=== PATIENT | male | born 1945 | race Caucasian/White ===

== ENCOUNTER 2020-06-15 10:19 | Outpatient (CLI) | payer MEDICARE, SELFPAY ==
--- NOTE | ~2020-06-15 | XR_ITS ---
EXAMINATION: XR lumbar spine 2-3V DATE: 06/15/2020 10:36 INDICATION: Low back pain. TECHNIQUE: 3 views of lumbar spine were obtained. COMPARISON: CT abdomen and pelvis 07/18 FINDINGS: There is 4 degrees dextrocurvature of thoracolumbar spine. Vertebral body heights are ramsey l. There is moderately decreased disc height at L1-L2 and mildly decreased disc height at L3-L4 and L 4-L5. There are endplate osteophytes at most levels. There is moderate facet joint osteoarthritis in lower lumbar spine. Surgical clips in the right upper quadrant are likely from cholecystectomy. There is a dropped clip in the pelvis. IMPRESSION: 1. Moderate lumbar spondylosis. Reviewed, dictated and finalized at location B. K ROOM MANAGER
== END 2020-06-15 10:20 | disposition home or self-care (01) ==
PROVIDERS: PCP Family Medicine; Visit Provider Physician Assistant
DX: M47.896 Other spondylosis, lumbar region (principal)
CPT/HCPCS: 72100

== ENCOUNTER 2023-09-13 12:54 | Outpatient (CLI) | payer MEDICARE, SELFPAY | END 2023-09-13 12:55 | disposition home or self-care (01) | LOC: ANHAUDIO 12:54 | PROVIDERS: PCP Family Medicine; Visit Provider Otolaryngology | DX: H90.3 Sensorineural hearing loss, bilateral (principal); H93.19 Tinnitus, unspecified ear; I12.9 Hypertensive chronic kidney disease with stage 1 through stage 4 chronic kidney disease, or unspecified chronic kidney disease; N18.31 Chronic kidney disease, stage 3a | CPT/HCPCS: 92557; 92567 ==

== ENCOUNTER 2023-10-31 12:30 | Outpatient (CLI) | payer MEDICARE, SELFPAY ==
--- NOTE | ~2023-10-31 | MR_ITS ---
EXAMINATION: MR IAC wo/w con DATE: 10/31/2023 13:46 INDICATION: Benign neoplasm of cranial nerves. Left-sided hearing loss. Tinnitus. TECHNIQUE: Magnetic resonance imaging (MRI) of the brain, brainstem, and internal auditory canals was performed without and with 14 mL MultiHance intravenous contrast. COMPARISON: Head CT 03/30/2017 FINDINGS: There are scattered areas of nonspecific increased T2-weighted signal intensity in the cere bral white matter. There is no intracranial hemorrhage, acute infarction, or abnormal intracranial ma ss lesion. The ventricles are normal in size. There is mild mucosal thickening in the ethmoid sinuses . There are likely changes of ocular lens replacement surgeries. The internal auditory canals, inner ears, tympanic cavities, and mastoid air cells are normal. IMPRESSION: 1. Moderate nonspecific cerebral white matter disease, which likely represents chronic small vessel i schemic disease. Reviewed, dictated and finalized at location A. IMPRESSION: 1. Moderate nonspecific cerebral white matter disease, which likely represents chronic small vessel ischemic disease.
== END 2023-10-31 12:31 ==
LOC: GOSHIMG 12:31
PROVIDERS: PCP Family Medicine; Visit Provider Otolaryngology
DX: D33.3 Benign neoplasm of cranial nerves (principal); H90.3 Sensorineural hearing loss, bilateral; H93.19 Tinnitus, unspecified ear; R90.82 White matter disease, unspecified
CPT/HCPCS: 70553; A9577

== ENCOUNTER 2023-12-23 16:48 | Outpatient (CLI) | payer MEDICARE, SELFPAY ==
--- NOTE | ~2023-12-23 | XR_ITS ---
EXAMINATION: XR hip RT min 2V DATE: 12/23/2023 17:15 INDICATION: Right hip pain TECHNIQUE: Anteroposterior and frog-leg lateral views of the right hip were obtained. COMPARISON: None. FINDINGS: Bone alignment is normal. No fracture or suspected osteonecrosis. Right hip joint space is relatively preserved with small marginal osteophytes along the right acetabulum. Mild bilateral sacroiliac oste oarthritis. Bone island at the right femoral head. Surgical clip in the pelvis. IMPRESSION: 1. 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 No acute osseous abnormality. Reviewed, dictated and finalized at location A.
--- NOTE | ~2023-12-23 | XR_ITS ---
EXAMINATION: XR lumbar spine min 4V DATE: 12/23/2023 17:15 INDICATION: Right hip pain TECHNIQUE: Anteroposterior, lateral, and bilateral oblique views of the lumbar spine, and cone-down l ateral view of the lumbosacral junction were obtained. COMPARISON: 06/15/2020 FINDINGS: A degree thoracolumbar dextrocurvature. Sagittal alignment is normal. Vertebral body heights are norm al. Moderate disc height loss at L1-L2 and L4-L5. Mild disc height loss at L2-L3, L3-L4 and L5-S1. Mi ld to moderate lumbar facet osteoarthritis most prominent at the left side of the upper lumbar spine and bilaterally at the lower lumbar spine. No pars interarticularis defects. Mild osteoarthritis of t he bilateral sacroiliac joints. Cholecystectomy clips in the right upper quadrant with likely dropped clips in the pelvis along the lateral margin of the caudal tip of the liver. IMPRESSION: 1. Interval progression of now 8 degree thoracolumbar dextrocurvature and still moderate lumbar spond ylosis. Reviewed, dictated and finalized at location A. IMPRESSION: 1. Interval progression of now 8 degree thoracolumbar dextrocurvature and still moderate lumbar spondylosis.
== END 2023-12-23 16:49 | disposition home or self-care (01) ==
LOC: ANHIMG 16:49
PROVIDERS: PCP Family Medicine; Visit Provider Nurse Practitioner Family
DX: M16.11 Unilateral primary osteoarthritis, right hip (principal); M46.1 Sacroiliitis, not elsewhere classified; M43.06 Spondylolysis, lumbar region; M43.8X5 Other specified deforming dorsopathies, thoracolumbar region
CPT/HCPCS: 72110; 73502

== ENCOUNTER 2024-01-05 09:31 | Outpatient (CLI) | payer MEDICARE, SELFPAY ==
--- NOTE | ~2024-01-05 | MR_ITS ---
EXAMINATION: MR lumbar spine wo con DATE: 01/05/2024 10:22 INDICATION: Low back pain, unspecified. TECHNIQUE: Magnetic resonance imaging (MRI) of the lumbar spine was performed without intravenous con trast. Sequences included sagittal T2-weighted FSE, sagittal T2-weighted FS FSE, sagittal T1-weighted FSE, and axial T2-weighted FSE. COMPARISON: Lumbar spine radiographs 12/23/2023 FINDINGS: There is 8 degrees dextrocurvature of lumbar spine. There is mild chronic anterior wedging of T12 vertebral body. There is moderately decreased disc height at L1-L2, mildly decreased disc heig ht at L2-L3 and L3-L4, and moderately decreased disc height at L4-L5. The distal spinal cord signal i ntensity is normal. The conus medullaris is at T12. The following disc levels are specifically discus sed: L1-L2: The disc is bulging. There is mild bilateral facet joint osteoarthritis. There is mild bilater al neural foraminal stenosis. There is mild central canal stenosis. L2-L3: The disc is bulging. There is moderate bilateral facet joint osteoarthritis. There is mild jake ateral neural foraminal stenosis. There is mild central canal stenosis. L3-L4: The disc is bulging and has an annular fissure. There is moderate bilateral facet joint osteoa rthritis. There is mild bilateral neural foraminal stenosis. There is mild central canal stenosis. L4-L5: The disc is bulging and has an annular fissure. There is severe right and moderate left facet joint osteoarthritis. There is moderate bilateral neural foraminal stenosis. There is mild central ca nal stenosis. L5-S1: There is a left foraminal protrusion. There is severe bilateral facet joint osteoarthritis. Th ere is mild bilateral neural foraminal stenosis. There is no central canal stenosis. IMPRESSION: 1. Moderate lumbar spondylosis. Reviewed, dictated and finalized at location E.
== END 2024-01-05 09:32 | disposition home or self-care (01) ==
PROVIDERS: PCP Family Medicine; Visit Provider Nurse Practitioner Family
DX: M46.96 Unspecified inflammatory spondylopathy, lumbar region (principal); M47.818 Spondylosis without myelopathy or radiculopathy, sacral and sacrococcygeal region; M54.9 Dorsalgia, unspecified; M54.50 Low back pain, unspecified; M25.551 Pain in right hip; M43.06 Spondylolysis, lumbar region
CPT/HCPCS: 72148

== ENCOUNTER 2024-01-15 08:06 | Outpatient (CLI) | payer MEDICARE, SELFPAY ==
--- NOTE | ~2024-01-15 | MR_ITS ---
MRI of the right hip Clinical history: Pain Technique: Coronal T1-weighted, T2-weighted, and proton-density fat-sat images, and axial T1-weighted and proton-density fat-sat images were acquired through the pelvis. Coronal T2-weighted images and c oronal, axial, and sagittal proton-density fat-sat images were acquired through the right hip. Findings: There is no fracture or avascular necrosis of either hip. Bone marrow signals of the proxim al femora and pelvic bones are unremarkable. Bilateral hip joint spaces are preserved, possible minim al chondral thinning. No significant joint effusion or degenerative change otherwise. No evidence for right acetabular labral tear. Visualized musculature about the pelvis and right hip is unremarkable. No muscle atrophy or edema see n. Visualized tendons are intact. No soft tissue mass or fluid collection seen. No bursitis. IMPRESSION: No significant abnormality seen. Reviewed, dictated and finalized at [facility].
== END 2024-01-15 08:07 ==
LOC: GOSHIMG 08:07
PROVIDERS: PCP Family Medicine; Visit Provider Nurse Practitioner Family
DX: M54.50 Low back pain, unspecified (principal); M25.551 Pain in right hip; M46.96 Unspecified inflammatory spondylopathy, lumbar region; M47.818 Spondylosis without myelopathy or radiculopathy, sacral and sacrococcygeal region; M54.9 Dorsalgia, unspecified
CPT/HCPCS: 73721

== ENCOUNTER 2024-10-02 10:14 | Outpatient (CLI) | payer MEDICARE, SELFPAY | END 2024-10-02 10:15 | disposition home or self-care (01) | PROVIDERS: PCP Family Medicine; Visit Provider Nurse Practitioner Family | DX: R55 Syncope and collapse (principal); R07.89 Other chest pain | CPT/HCPCS: 93017 ==

== ENCOUNTER 2024-10-14 16:16 | Emergency (ER) | payer MEDICARE, SELFPAY ==
--- NOTE | 2024-10-14 16:43 | ECG_ITS ---
Test Date: 2024-10-14 16:46:51 Measurements Intervals [place] Rate: 88 P: 35 MO: 197 QRS: 16 QRSD: 75 T: 35 QT: 307 QTc: 373 Interpretive Statements SINUS RHYTHM NONSPECIFIC T-WAVE ABNORMALITY No previous ECG available for comparison Electronically Signed On 10-15-2024 13:56:58 CDT by Ilir Mcmillan M.D.
--- NOTE | 2024-10-14 17:54 | ED_ITS ---
HPI - General Adult General Chief complaint: Weakness <FABIOLA Wilcox Last Filed: 10/14/24 18:14> Stated complaint: diarrhea, weak <FABIOLA Wilcox Last Filed: 10/14/24 18:14> Time Seen by Provider: 10/14/24 18:03 <Chantal Pulido PA-C - Last Filed: 10/14/24 18:14> Focused HPI: Patient is a 79 y/o male who presents to the ED with c/o diarrhea and weakness. Patient reports he has been feeling very weak and fatigued over the last 2-3 days. He had diarrhea all day yesterday, reporting multiple episodes throughout the day. Today has felt increasingly weak, been sleeping most of the day. Called PCP and was referred to the ED for further evaluation. Denies N/V, abdominal, CP, SOB, fevers, trouble urinating. Denies bad food exposure. Denies family members with similar symptoms. Reports lingering cough for the past 3 months. Notes he had a syncopal episode end of September and underwent stress testing recently, which was normal. Scheduled to see photolith operator at the end of this month. GENERAL: Well-appearing, well-nourished, and in no acute distress. HEAD: Normocephalic, atraumatic. CHEST: Clear to auscultation. ?No respiratory distress. HEART: Regular rate and rhythm.? ABD: No significant focal tenderness. Normoactive BS NEURO: ?Alert and oriented x3. Patient screened in triage and initial orders placed.? ?Additional care and disposition to be based upon?diagnostic testing and treatment. <FABIOLA Wilcox Last Filed: 10/14/24 18:14> Source: patient <FABIOLA Wilcox Last Filed: 10/14/24 18:14> Mode of arrival: ambulatory <FABIOLA Wilcox Last Filed: 10/14/24 18:14> Limitations: no limitations <FABIOLA Wilcox Last Filed: 10/14/24 18:14> Related Data Home medications: Home Medications ?Medication ?Instructions ?Recorded ?Confirmed ?Last Taken ?Type mecobalamin (vitamin B12) 500 mcg mcg PO DAILY 11/22/23 09/23/24 Unknown History chewable tablet juzmqnja-oa-sftls 300 mcg-K 60 1 tablet PO DAILY 11/22/23 09/23/24 Unknown History mcg-lycop 600 mcg-lutein 300 mcg tablet (Centrum Silver Men) <Chantal Pulido PA-C - Last Filed: 10/14/24 18:14> Allergies/adverse reactions: Allergies Allergy/AdvReac Type Severity Reaction Status Date / Time morphine Allergy Unknown Urticaria Verified 10/14/24 16:42 <Chantal Pulido PA-C - Last Filed: 10/14/24 18:14> Review of Systems 2 Review of Systems: All systems are reviewed and are negative unless stated otherwise in the HPI. <Tyler Colvin MD - Last Filed: 10/14/24 20:32> PMFSH Past Medical History Medical History: Medical History Lumbar spondylosis Essential (primary) hypertension Chronic kidney disease, stage 3a Hypertriglyceridemia Type 2 diabetes mellitus without complications BPH (benign prostatic hyperplasia) Other age-related incipient cataract, right eye Overweight Gastro-esophageal reflux disease without esophagitis Idiopathic gout, unspecified site <Chantal Pulido PA-C - Last Filed: 10/14/24 18:14> Surgical History Surgical History: Surgical History History of cholecystectomy (~07/2006) <Chantal Pulido PA-C - Last Filed: 10/14/24 18:14> Family History Family History: Family History Mother Family history of arthritis Family history of Alzheimer's disease Father Family history of cardiovascular disease Acute myocardial infarction, Onset Age: 43 Other Hypertension <Chantal Pulido PA-C - Last Filed: 10/14/24 18:14> Social History Social History: Social History Smoking status: Never smoker Alcohol intake: current Substance use: never Substance use type: does not use Lack of Transportation: No Lack of Food: Never True Current Housing: I Have Housing Concerned About Future Housing: No Difficulty Paying Gas/Electric Bills: No Difficulty Paying for Meds: No Currently Unemployed: No Education: High School Diploma/GED Difficulty w/ Childcare or Family Care: No Living arrangements: with family Additional living arrangements comments: Occupation/Education: retired Gender identity (if verbalized by the patient): Male Sexual Orientation (if Verbalized by the Patient): Straight or Heterosexual Agree to blood products: Yes <Chantal Pulido PA-C - Last Filed: 10/14/24 18:14> Exam 2 Narrative: General: Alert, awake, afebrile, in no acute distress, pleasant elderly male. HEENT: PERRL, no rhinorrhea, no post nasal drip, oropharynx clear. Neck: Trachea midline, no JVD, no lymphadenopathy. Cardiovascular: Regular rate and rhythm, no murmurs, rubs or gallops, no peripheral edema. Respiratory: Clear to auscultation bilaterally, no tachypnea, no wheezing, no rhonchi, no rubs, no respiratory distress. Abdomen: Soft, nontender, nondistended, no rebound, no guarding, no peritoneal signs. Musculoskeletal: No joint swelling or deformity, normal muscle tone. Skin: No rashes or petechia, no signs of infection. Psychiatric: Alert and oriented, normal behavior and judgment for situation. Neurological: Alert and oriented to person, place, and time. Follows all commands. No focal deficits, speech is clear and fluent. <Tyler Colvin MD - Last Filed: 10/14/24 20:32> Course Vital Signs Vital signs: Vital Signs Pulse Rate 79 10/14/24 19:05 Pulse Rate 81 10/14/24 19:27 Respiratory Rate 16 10/14/24 19:27 Blood Pressure 119/63 10/14/24 19:27 Pulse Oximetry 98 10/14/24 19:27 <Chantal Pulido PA-C - Last Filed: 10/14/24 18:14> Vital Signs Pulse Rate 79 10/14/24 19:05 Pulse Rate 81 10/14/24 19:27 Respiratory Rate 16 10/14/24 19:27 Blood Pressure 119/63 10/14/24 19:27 Pulse Oximetry 98 10/14/24 19:27 <Tyler Colvin MD - Last Filed: 10/14/24 20:32> Medical Decision Making MDM Narrative Medical decision making narrative: MSE by ERIC in triage. <Chantal Pulido PA-C - Last Filed: 10/14/24 18:14> MSE by ERIC in triage. The patient was evaluated by myself in the emergency department. History is obtained from patient who is an independent historian and physical exam was performed. External medical records were reviewed at this time. IV was established and pertinent tests were ordered. Patient was administered 1 L IV fluid bolus with normal saline. EKG was obtained which revealed sinus rhythm rate of 88 beats per minute, no evidence of acute ischemia. EKG was independently interpreted by me and is currently pending official cardiology read. Laboratory results obtained revealing a creatinine of 1.7 which is slightly higher than patient's baseline creatinine which ranges around 1.5, otherwise remainder of the blood work is unremarkable. Urinalysis revealed trace ketones otherwise unremarkable. Viral swabs noted to be negative for COVID/influenza/RSV. Differential diagnosis considerations include acute viral syndrome, dehydration, electrolyte derangements. Comorbidities impacting this visit include none. I have evaluated and discussed social determinants of health with the patient that could potentially impact subsequent diagnosis and treatment plans. On repeat assessment of the patient, reevaluation revealed that the patient is doing well and is in no acute distress. Patient symptoms have improved since he arrived to our emergency department. Repeat vital signs were all reviewed and noted to be stable. Differential diagnosis and treatment plan were discussed with the patient at bedside. Patient agrees with discussion and after shared medical decision making agrees with discharge. All questions were answered to the patient's satisfaction. Patient will follow up with her PCP in 3-5 days. Patient was provided with strict return precautions and instructed to return to the emergency department if any new or worsening symptoms develop. The patient was discharged in stable condition. <Tyler Colvin MD - Last Filed: 10/14/24 20:32> Vital Signs Vital Signs: Vital Signs Pulse Rate 79 10/14/24 19:05 Pulse Rate 81 10/14/24 19:27 Respiratory Rate 16 10/14/24 19:27 Blood Pressure 119/63 10/14/24 19:27 Pulse Oximetry 98 10/14/24 19:27 <Chantal Pulido PA-C - Last Filed: 10/14/24 18:14> Vital Signs Pulse Rate 79 10/14/24 19:05 Pulse Rate 81 10/14/24 19:27 Respiratory Rate 16 10/14/24 19:27 Blood Pressure 119/63 10/14/24 19:27 Pulse Oximetry 98 10/14/24 19:27 <Tyler Colvin MD - Last Filed: 10/14/24 20:32> Lab Data Result diagrams: 10/14/24 19:07 10/14/24 19:07 <Chantal Pulido PA-C - Last Filed: 10/14/24 18:14> Labs: Lab Results 10/14/24 Range/Units 19:07 WBC 10.2 H (4.5-10.0) K/mm3 RBC 5.02 (4.6-6.20) M/mm3 Hgb 15.3 (14.0-18.0) g/dL Hct 45.4 (42.0-52.0) % MCV 90.4 (80-100) fl MCH 30.5 (26-34) pg MCHC 33.7 (32-36) g/dl RDW 13.2 (11.5-14.5) % Plt Count 225 (150-375) k/mm3 MPV 9.9 (7.4-10.4) fl Immature Gran % (Auto) 0.5 (0-0.5) % Neut % (Auto) 53.9 (45.5-73.1) % Lymph % (Auto) 34.6 (18.3-44.2) % [place] % (Auto) 8.8 H (2.6-8.5) % Eos % (Auto) 1.9 (0-4.4) % Baso % (Auto) 0.3 (0.2-1.2) % Lymph # (Auto) 3.52 H (0.9-3.2) K/mm3 [place] # (Auto) 0.9 H (0.1-0.6) K/mm3 Eos # (Auto) 0.2 (0-0.3) K/mm3 Baso # (Auto) 0.0 (0.0-0.1) K/mm3 Abs Immat Gran (auto) 0.05 H (0.00-0.031) K/mm3 Absolute Neuts (auto) 5.5 (1.3-6.7) K/mm3 Absolute Nucleated RBC 0.000 (0.0-0.012) K/mm3 Nucleated RBC % 0.0 (0.0-0.2) % Sodium 140 (137-145) mmol/L Potassium 4.4 (3.4-5.0) mmol/L Chloride 100 (98-107) mmol/L Carbon Dioxide 26 (22-30) mmol/L Anion Gap 14 H (4-12) mmol/L BUN 29 H (9-20) mg/dL Creatinine 1.71 H (0.7-1.3) mg/dL Estim Creat Clear Calc Not Reportable Estimated GFR 39 L (59 - ) Glucose 118 H (65-110) mg/dL Calcium 9.7 (8.4-10.2) mg/dL Magnesium 1.8 (1.6-2.3) mg/dL Total Bilirubin 0.9 (0.2-1.3) mg/dL AST 33 (17-59) U/L ALT 50 (6-50) U/L Alkaline Phosphatase 93 (38-126) U/L Total Protein 9.0 H (6.3-8.2) g/dL Albumin 5.0 (3.5-5.1) g/dL Lipase 31 (23-300) U/L Urine Color Yellow (Yellow) Urine Appearance Clear (Clear) Urine pH 5.0 (5.0-9.0) Ur Specific [place] 1.023 (1.001-1.035) Urine Protein Negative (Negative) mg/dL Urine Glucose (UA) Negative (Negative) mg/dL Urine Ketones Trace H (Negative) mg/dL Ur Blood (Man) Negative (Negative) Urine Nitrate Negative (Negative) Urine Bilirubin Negative (Negative) Urine Urobilinogen 0.2 (<2.0) mg/dL Leukocyte Esterase Rfl Negative (Negative) RITESH/UL Influenza A (RT-PCR) Negative (Negative) Influenza B (RT-PCR) Negative (Negative) RSV (RT-PCR) Negative (Negative) SARS-CoV-2 RNA (RT-PCR) Negative (Negative) <Chantal Pulido PA-C - Last Filed: 10/14/24 18:14> Lab Results 10/14/24 Range/Units 19:07 WBC 10.2 H (4.5-10.0) K/mm3 RBC 5.02 (4.6-6.20) M/mm3 Hgb 15.3 (14.0-18.0) g/dL Hct 45.4 (42.0-52.0) % MCV 90.4 (80-100) fl MCH 30.5 (26-34) pg MCHC 33.7 (32-36) g/dl RDW 13.2 (11.5-14.5) % Plt Count 225 (150-375) k/mm3 MPV 9.9 (7.4-10.4) fl Immature Gran % (Auto) 0.5 (0-0.5) % Neut % (Auto) 53.9 (45.5-73.1) % Lymph % (Auto) 34.6 (18.3-44.2) % [place] % (Auto) 8.8 H (2.6-8.5) % Eos % (Auto) 1.9 (0-4.4) % Baso % (Auto) 0.3 (0.2-1.2) % Lymph # (Auto) 3.52 H (0.9-3.2) K/mm3 [place] # (Auto) 0.9 H (0.1-0.6) K/mm3 Eos # (Auto) 0.2 (0-0.3) K/mm3 Baso # (Auto) 0.0 (0.0-0.1) K/mm3 Abs Immat Gran (auto) 0.05 H (0.00-0.031) K/mm3 Absolute Neuts (auto) 5.5 (1.3-6.7) K/mm3 Absolute Nucleated RBC 0.000 (0.0-0.012) K/mm3 Nucleated RBC % 0.0 (0.0-0.2) % Sodium 140 (137-145) mmol/L Potassium 4.4 (3.4-5.0) mmol/L Chloride 100 (98-107) mmol/L Carbon Dioxide 26 (22-30) mmol/L Anion Gap 14 H (4-12) mmol/L BUN 29 H (9-20) mg/dL Creatinine 1.71 H (0.7-1.3) mg/dL Estim Creat Clear Calc Not Reportable Estimated GFR 39 L (59 - ) Glucose 118 H (65-110) mg/dL Calcium 9.7 (8.4-10.2) mg/dL Magnesium 1.8 (1.6-2.3) mg/dL Total Bilirubin 0.9 (0.2-1.3) mg/dL AST 33 (17-59) U/L ALT 50 (6-50) U/L Alkaline Phosphatase 93 (38-126) U/L Total Protein 9.0 H (6.3-8.2) g/dL Albumin 5.0 (3.5-5.1) g/dL Lipase 31 (23-300) U/L Urine Color Yellow (Yellow) Urine Appearance Clear (Clear) Urine pH 5.0 (5.0-9.0) Ur Specific [place] 1.023 (1.001-1.035) Urine Protein Negative (Negative) mg/dL Urine Glucose (UA) Negative (Negative) mg/dL Urine Ketones Trace H (Negative) mg/dL Ur Blood (Man) Negative (Negative) Urine Nitrate Negative (Negative) Urine Bilirubin Negative (Negative) Urine Urobilinogen 0.2 (<2.0) mg/dL Leukocyte Esterase Rfl Negative (Negative) RITESH/UL Influenza A (RT-PCR) Negative (Negative) Influenza B (RT-PCR) Negative (Negative) RSV (RT-PCR) Negative (Negative) SARS-CoV-2 RNA (RT-PCR) Negative (Negative) <Tyler Colvin MD - Last Filed: 10/14/24 20:32> Discharge Plan Discharge Clinical Impression: Acute diarrhea, Dehydration <Chantal Pulido PA-C - Last Filed: 10/14/24 18:14> Patient Disposition: Home, Self-Care <Chantal Pulido PA-C - Last Filed: 10/14/24 18:14> Condition: Improved <Chantal Pulido PA-C - Last Filed: 10/14/24 18:14> Instructions: Antibiotic Form, Dehydration (DC), Acute Diarrhea (ED) <Chantal Pulido PA-C - Last Filed: 10/14/24 18:14> Additional Instructions: Please follow-up with your family doctor within the next 3-5 days. Return to the emergency department if any new or worsening symptoms develop. Maintain your oral hydration by drinking lots of fluids. <Chantal Pulido PA-C - Last Filed: 10/14/24 18:14> Patient Language: [place]an <Chantal Pulido PA-C - Last Filed: 10/14/24 18:14> Prescriptions: No Action Centrum Silver Men [id number] mcg tablet 1 tablet PO DAILY mecobalamin (vitamin B12) 500 mcg tablet,chewable PO DAILY lisinopril 10 mg tablet 10 mg PO DAILY Qty: 90 2RF omeprazole 20 mg capsule,delayed release(DR/EC) 20 mg PO DAILY PRN (Reason: gastric reflux) Qty: 90 1RF metformin 500 mg tablet extended release 24 hr 500 mg PO DAILY Qty: 90 1RF <Chantal Pulido PA-C - Last Filed: 10/14/24 18:14> Follow-up/Referrals: Cirilo Liu MD [Primary Care Provider] - <Chantal Pulido PA-C - Last Filed: 10/14/24 18:14> Time of Disposition: 19:52 <Chantal Pulido PA-C - Last Filed: 10/14/24 18:14> 19:52 <Tyler Colvin MD - Last Filed: 10/14/24 20:32>
[2024-10-14 19:05] VITALS: PULSE 79
[2024-10-14 19:18] LABS: Basophils Percent Auto 0.3 % (0.2-1.2); Eosinophils Absolute Auto 0.2 K/mm3 (0-0.3); Eosinophils Percent Auto 1.9 % (0-4.4); Hematocrit 45.4 % (42.0-52.0); Hemoglobin 15.3 g/dL (14.0-18.0); Immature Granulocyte Absolute 0.05 K/mm3 (0.00-0.031); Immature Granulocyte Percent A 0.5 % (0-0.5); Lymphocytes Absolute Auto 3.52 K/mm3 (0.9-3.2); Lymphocytes Percent Auto 34.6 % (18.3-44.2); Mean Corpuscular HGB Conc 33.7 g/dl (32-36); Mean Corpuscular Hemoglobin 30.5 pg (26-34); Mean Corpuscular Volume 90.4 fl (80-100); Mean Platelet Volume 9.9 fl (7.4-10.4); Monocytes Absolute Auto 0.9 K/mm3 (0.1-0.6); Monocytes Percent Auto 8.8 % (2.6-8.5); Neutrophils Absolute Auto 5.5 K/mm3 (1.3-6.7); Neutrophils Percent Auto 53.9 % (45.5-73.1); Platelet Count Result 225 k/mm3 (150-375); Red Blood Count 5.02 M/mm3 (4.6-6.20); Red Cell Distribution Width 13.2 % (11.5-14.5); White Blood Count 10.2 K/mm3 (4.5-10.0)
[2024-10-14 19:19] LABS: Add Urine Microscopic? NO; Appearance Urine Clear (Clear); Bilirubin Urine Negative (Negative); Blood Urine Negative (Negative); Color Urine Yellow (Yellow); Glucose Urine UA Negative (Negative); Ketones Urine Trace mg/dL (Negative); Leukocyte Esterase Ur Negative LEU/UL (Negative); Nitrate Urine Negative (Negative); Protein Urine Negative (Negative); Specific Grav Ur 1.023 (1.001-1.035); Urobilinogen Urine 0.2 mg/dL (<2.0)
--- NOTE | 2024-10-14 19:25 | PC.NURSE ---
Assumed care of pt after receiving report from JATIN Hopkins @ [phone]
[2024-10-14 19:27] VITALS: BP 119/63; PULSE 81; RESP 16; O2SAT 98
[2024-10-14 19:28] LABS: Alanine Aminotransferase 50 U/L (6-50); Alkaline Phosphatase 93 U/L (38-126); Anion Gap 14 mmol/L (4-12); Aspartate Amino Transferase 33 U/L (17-59); Bilirubin,Total 0.9 mg/dL (0.2-1.3); Blood Urea Nitrogen 29 mg/dL (9-20); Calcium 9.7 mg/dL (8.4-10.2); Carbon Dioxide 26 mmol/L (22-30); Chloride 100 mmol/L (98-107); Estimated Glomerular Filt Rate 39; Glucose 118 mg/dL (65-110); Lipase 31 U/L (23-300); Magnesium 1.8 mg/dL (1.6-2.3); Potassium 4.4 mmol/L (3.4-5.0); Sodium 140 mmol/L (137-145)
[2024-10-14] MEDS: SODIUM CHLORIDE 0.9% IV 1,000 ML 999 ML IV CONT (19:44)
[2024-10-14 19:55] LABS: Influenza A QL RT-PCR Negative (Negative); Influenza B QL RT-PCR Negative (Negative); RSV RNA, RT-PCR Negative (Negative); SARS-CoV-2 RNA PCR Negative (Negative)
[2024-10-14 20:40] VITALS: BP 124/64; PULSE 85; RESP 15; O2SAT 98
== END 2024-10-14 20:44 | disposition home or self-care (01) ==
LOC: ANHED 20:21
PROVIDERS: Physician Assistant; Emergency Provider Emergency Medicine; PCP Family Medicine
DX: R19.7 Diarrhea, unspecified (principal); E86.0 Dehydration; Z20.822 Contact with and (suspected) exposure to COVID-19; I12.9 Hypertensive chronic kidney disease with stage 1 through stage 4 chronic kidney disease, or unspecified chronic kidney disease; E11.22 Type 2 diabetes mellitus with diabetic chronic kidney disease; N18.31 Chronic kidney disease, stage 3a; N40.0 Benign prostatic hyperplasia without lower urinary tract symptoms; K21.9 Gastro-esophageal reflux disease without esophagitis; M10.00 Idiopathic gout, unspecified site; Z90.49 Acquired absence of other specified parts of digestive tract; Z79.84 Long term (current) use of oral hypoglycemic drugs; Z79.899 Other long term (current) drug therapy; R94.31 Abnormal electrocardiogram [ECG] [EKG]
CPT/HCPCS: 36415; 80053; 81003; 83690; 83735; 85025; 87637; 93005; 96360; 99284; J7030

== ENCOUNTER 2025-04-03 17:13 | Emergency (ER) | payer MEDICARE, SELFPAY ==
--- NOTE | ~2025-04-03 | CT_ITS ---
EXAMINATION: CT brain mei hurtado, 04/03/2025 17:45 CDT HISTORY: head injury COMPARISON: No comparisons available. Technique: Axial images obtained of the brain without contrast. One or more of the following dose reduction techniques were used: automated exposure control, adjustment of the mA and/or kV according to patient size, use of iterative reconstruction technique. Findings: No acute infarct or parenchymal hemorrhage. No abnormal mass or mass effect. No midline shift. No extra-axial fluid collections. No hydrocephalus. Mastoid air cells unremarkable. Sinuses and orbits unremarkable. No acute fracture. No significant facial or scalp soft tissue swelling evident. No radiopaque foreign body is seen. Impression: 1.No acute intracranial abnormality. Reviewed, dictated and finalized at location A. Impression: 1.No acute intracranial abnormality.
[2025-04-03 17:15] VITALS: BP 158/73; PULSE 81; RESP 16; TEMP 36.4; O2SAT 96
--- NOTE | 2025-04-03 18:57 | ED.GENADULT ---
HPI - General Adult General Chief complaint: Fall Stated complaint: fall, eyebrow lac Time Seen by Provider: 04/03/25 17:24 History of Present Illness HPI narrative: Patient is a 72-year-old male who presents ER after a trip and fall. His to puppies were fighting and he when out to stop them when he tripped and fell striking his head on the ground. No loss of consciousness. No blood thinning agents. Small abrasion to the right eyebrow. No nausea or vomiting. No additional concerns. Related Data Home Medications ?Medication ?Instructions ?Recorded ?Confirmed ?Last Taken ?Type [id number] 300 mcg-K 60 1 tablet PO DAILY 11/22/23 11/26/24 Unknown History mcg-lycop 600 mcg-lutein 300 mcg tablet (Centrum Silver Men) mecobalamin (vitamin B12) 500 mcg 500 mcg PO DAILY 11/26/24 11/26/24 Unknown History chewable tablet Allergies Allergy/AdvReac Type Severity Reaction Status Date / Time morphine Allergy Unknown Urticaria Verified 04/03/25 17:31 Review of Systems Review of Systems: All systems reviewed & are unremarkable except as noted in HPI and below Constitutional: Constitutional: Reports no additional constitutional complaints Cardiovascular: Cardiovascular: Reports no additional cardiovascular complaints Respiratory: Respiratory: Reports no additional respiratory complaints Musculoskeletal: Musculoskeletal: Reports no additional musculoskeletal complaints Neurologic: Reports system reviewed and no additional complaints, except as documented PMF Past Medical History Medical History Tinnitus Dyslipidemia Left ear hearing loss Lumbar spondylosis Essential (primary) hypertension Chronic kidney disease, stage 3a Hypertriglyceridemia Type 2 diabetes mellitus without complications BPH (benign prostatic hyperplasia) Other age-related incipient cataract, right eye Overweight Gastro-esophageal reflux disease without esophagitis Idiopathic gout, unspecified site Surgical History Surgical History History of cholecystectomy (~07/2006) Family History Family History Mother Family history of arthritis Family history of Alzheimer's disease Father Family history of cardiovascular disease Acute myocardial infarction, Onset Age: 43 Other Hypertension Social History Social History Smoking status: Never smoker Alcohol intake: current Substance use: never Substance use type: does not use Lack of Transportation: No Lack of Food: Never True Current Housing: I Have Housing Concerned About Future Housing: No Difficulty Paying Gas/Electric Bills: No Difficulty Paying for Meds: No Currently Unemployed: No Education: High School Diploma/GED Difficulty w/ Childcare or Family Care: No Living arrangements: with family Additional living arrangements comments: Occupation/Education: retired Gender identity (if verbalized by the patient): Male Sexual Orientation (if Verbalized by the Patient): Straight or Heterosexual Agree to blood products: Yes Exam Narrative: GENERAL: Well-appearing, well-nourished, and in no acute distress. HEAD: Normocephalic, small abrasion right lateral eyebrow. ENT: Mucous membranes moist. CHEST: Clear to auscultation. No respiratory distress. HEART: Regular rate and rhythm. Normal peripheral pulses. EXTREMITIES: Normal range of motion. No edema. SKIN: Warm, dry, no rash. NEURO: Alert and oriented x3. PSYCH: Normal mood and affect. Course Course Emergency Course: Patient given reassurance. Discharged home. Vital Signs Vital signs: Vital Signs Temperature 97.6 F 04/03/25 17:15 Pulse Rate 81 04/03/25 17:15 Respiratory Rate 16 04/03/25 17:15 Blood Pressure 158/73 H 04/03/25 17:15 Pulse Oximetry 96 04/03/25 17:15 Oxygen Delivery Room Air 04/03/25 17:15 Temperature 97.6 F 04/03/25 17:15 Pulse Rate 79 04/03/25 19:20 Respiratory Rate 16 04/03/25 19:20 Blood Pressure 132/82 04/03/25 19:20 Pulse Oximetry 96 04/03/25 19:20 Oxygen Delivery Room Air 04/03/25 17:15 Medical Decision Making Vital Signs Vital Signs: Vital Signs Temperature 97.6 F 04/03/25 17:15 Pulse Rate 81 04/03/25 17:15 Respiratory Rate 16 04/03/25 17:15 Blood Pressure 158/73 H 04/03/25 17:15 Pulse Oximetry 96 04/03/25 17:15 Oxygen Delivery Room Air 04/03/25 17:15 Temperature 97.6 F 04/03/25 17:15 Pulse Rate 79 04/03/25 19:20 Respiratory Rate 16 04/03/25 19:20 Blood Pressure 132/82 04/03/25 19:20 Pulse Oximetry 96 04/03/25 19:20 Oxygen Delivery Room Air 04/03/25 17:15 Discharge Plan Discharge Clinical Impression: Head injury, Abrasion of eyebrow Patient Disposition: Home Condition: Stable Instructions: Abrasion (ED) Additional Instructions: Return to the ER if you suffered a new injury, you have chest pain with shortness of breath, or you have new confusion. Patient Language: Faroese Prescriptions: No Action Centrum Silver Men [id number] mcg tablet 1 tablet PO DAILY mecobalamin (vitamin B12) 500 mcg tablet,chewable 500 mcg PO DAILY atorvastatin [Lipitor] 10 mg tablet 10 mg PO QHS Qty: 90 1RF lisinopril 10 mg tablet 10 mg PO DAILY Qty: 90 1RF metformin 500 mg tablet extended release 24 hr 500 mg PO DAILY Qty: 90 1RF omeprazole 20 mg capsule,delayed release(DR/EC) 20 mg PO DAILY Qty: 90 1RF Follow-up/Referrals: Cirilo Liu MD [Primary Care Provider, Family Practice] - 1 Week
[2025-04-03 19:20] VITALS: BP 132/82; PULSE 79; RESP 16; O2SAT 96
== END 2025-04-03 19:17 | disposition home or self-care (01) ==
PROVIDERS: Emergency Provider Emergency Medicine; PCP Family Medicine
DX: S00.211A Abrasion of right eyelid and periocular area, initial encounter (principal); E11.22 Type 2 diabetes mellitus with diabetic chronic kidney disease; I12.9 Hypertensive chronic kidney disease with stage 1 through stage 4 chronic kidney disease, or unspecified chronic kidney disease; N18.31 Chronic kidney disease, stage 3a; E78.1 Pure hyperglyceridemia; E78.5 Hyperlipidemia, unspecified; N40.0 Benign prostatic hyperplasia without lower urinary tract symptoms; K21.9 Gastro-esophageal reflux disease without esophagitis; M10.00 Idiopathic gout, unspecified site; Z90.49 Acquired absence of other specified parts of digestive tract; Z79.899 Other long term (current) drug therapy; Z79.84 Long term (current) use of oral hypoglycemic drugs; W01.0XXA Fall on same level from slipping, tripping and stumbling without subsequent striking against object, initial encounter
CPT/HCPCS: 70450; 99284

== ENCOUNTER 2025-06-07 12:12 | Emergency (ER) | payer MEDICARE, SELFPAY ==
--- NOTE | ~2025-06-07 | CT_ITS ---
Exam: CT chest, abdomen and pelvis without contrast Clinical History: [Right lower back pain. ] Radiculopathy to groin Comparison: [ None available at this time] Technique: Multiple axial CT images of the chest, abdomen and pelvis were obtained without IV contrast. Sagittal and coronal reformatted images were obtained. Multiple contiguous axial and lumbar spine were obtained without contrast. Sagittal and coronal reformatted images were obtained. FINDINGS: Lung bases: Clear Liver: [ No mass.] [Fatty liver.No intrahepatic biliary duct dilatation.] Gallbladder: Cholecystectomy. Common bile duct: [ Normal caliber.] [ No stones.] Spleen: [ Within normal limits.] Pancreas: [ No mass. No pancreatic fluid collection.] Adrenals: [ No masses.] Kidneys: [ No masses. No hydronephrosis.][ There are a few too small to characterize low-attenuation lesions in the kidneys.] Lymph nodes: [ No adenopathy in the abdomen or pelvis.] Stomach, small bowel and colon: [ No bowel wall thickening or obstruction.] Peritoneum cavity: [ No mesenteric fat stranding or fluid.] Bladder: [ Unremarkable.] Osseous structures: [ No acute fracture lesion.] [ Multilevel degenerative change in the visualized spine.] Lumbar vertebral body heights and alignment are within normal limits. No compression fracture in the lumbar spine. Evaluation of the spinal canal contents and bilateral neuroforamen is limited due to CT technique. Moderate-sized anterior bridging osteophyte at the L5-S1 level. Bones appear osteopenic which lowers sensitivity of the study. At the L2-3 level, there is a posterior broad-based disc bulge causing mild/moderate narrowing of the spinal canal and mild to moderate narrowing of the bilateral neural foramen, worse on the left. At the L3-4 level, there is a moderate-sized posterior disc osteophyte complex causing mild/moderate narrowing of the spinal canal. Hypertrophy of ligamentum flavum. Mild narrowing of the bilateral neural foramen. At the L4-5 level, there is a moderate-sized posterior broad-based disc bulge with degenerative change in facet joints causing moderate narrowing of the spinal canal and moderate narrowing of the bilateral neural foramen. Impression at the L5-S1 level, degenerative change in the facet joints. No narrowing of the spinal canal. Mild to moderate narrowing of the bilateral neural foramen. Abdominal aorta: [ No aneurysm.] Additional findings: Prostate gland is moderately enlarged. IMPRESSION: 1. No CT evidence for an acute process in the abdomen or pelvis at this time. 2. Multilevel discogenic and degenerative change in the lumbar spine as detailed above. 3. Fatty liver. 4. Cholecystectomy. If symptoms persist or worsen, consider a short-term follow-up study or additional imaging for further assessment. Reviewed, dictated and finalized at location Q. [employer] IMPRESSION: 1. No CT evidence for an acute process in the abdomen or pelvis at this time. 2. Multilevel discogenic and degenerative change in the lumbar spine as detaile d above. 3. Fatty liver. 4. Cholecystectomy. If symptoms persist or worsen, consider a short-term follow-up study or additio nal imaging for further assessment.
[2025-06-07 12:22] VITALS: BP 140/74; PULSE 71; RESP 16; TEMP 37.1; O2SAT 99
[2025-06-07] MEDS: diazePAM (*CRX) 5 MG TABLET PO (14:18)
[2025-06-07 15:45] VITALS: BP 156/90; PULSE 92; RESP 16; O2SAT 98
--- NOTE | 2025-06-07 16:14 | ED.LOWEXIN ---
HPI - Extremity Injury (Lower) General Chief Complaint: Extremity Injury, Lower Stated Complaint: right sciatic nerve pain, hip pain and down leg Time Seen by Provider: 06/07/25 13:54 History of Present Illness HPI Narrative: Patient has had issues with his right lower back now for a long time, but recently since he bent to pick something up, he has been having shooting pain going down from the right back down the back of his leg. No focal numbness or weakness the pain is worse with certain movements. Has tried lidocaine patch and Tylenol which did not help much Related Data Home Medications ?Medication ?Instructions ?Recorded ?Confirmed ?Last Taken ?Type [id number] 300 mcg-K 60 1 tablet PO DAILY 11/22/23 06/01/25 Unknown History mcg-lycop 600 mcg-lutein 300 mcg tablet (Centrum Silver Men) mecobalamin (vitamin B12) 500 mcg 500 mcg PO DAILY 11/26/24 06/01/25 Unknown History chewable tablet Allergies Allergy/AdvReac Type Severity Reaction Status Date / Time morphine Allergy Unknown Urticaria Verified 06/07/25 12:26 Review of Systems Review of Systems: All systems reviewed & are unremarkable except as noted in HPI and below PMFSH Past Medical History Medical History Tinnitus Dyslipidemia Left ear hearing loss Lumbar spondylosis Essential (primary) hypertension Chronic kidney disease, stage 3a Hypertriglyceridemia Type 2 diabetes mellitus without complications BPH (benign prostatic hyperplasia) Other age-related incipient cataract, right eye Overweight Gastro-esophageal reflux disease without esophagitis Idiopathic gout, unspecified site Surgical History Surgical History History of cholecystectomy (~07/2006) Family History Family History Mother Family history of arthritis Family history of Alzheimer's disease Father Family history of cardiovascular disease Acute myocardial infarction, Onset Age: 43 Other Hypertension Social History Social History Smoking status: Never smoker Alcohol intake: current Substance use: never Substance use type: does not use Lack of Transportation: No Lack of Food: Never True Current Housing: I Have Housing Concerned About Future Housing: No Difficulty Paying Gas/Electric Bills: No Difficulty Paying for Meds: No Currently Unemployed: No Education: High School Diploma/GED Difficulty w/ Childcare or Family Care: No Living arrangements: with family Additional living arrangements comments: Occupation/Education: retired Gender identity (if verbalized by the patient): Male Sexual Orientation (if Verbalized by the Patient): Straight or Heterosexual Agree to blood products: Yes Exam Narrative: EXAMINATION OF ORGAN SYSTEMS/BODY AREAS: Constitutional: Vital signs per nursing GENERAL: Appears slightly uncomfortable in wheelchair HEAD: Normal with no signs of head trauma. EYES: EOMI, conjunctiva normal ENT: Hearing grossly intact LUNGS: Nonlabored breathing. HEART: [Regular rate and rhythm], normal right DP pulse ABD: [Soft], [nontender to palpation] EXT: Normal range of motion, including able to stand sit, normal flexion hip knee and ankle SKIN: [No rashes or lesions.] NEURO: [Alert and oriented x 3. No gross focal sensory or strength deficits.] Able to ambulate PSYCH: Normal affect Course Vital Signs Vital signs: Vital Signs Temperature 98.7 F 06/07/25 12:22 Pulse Rate 71 06/07/25 12:22 Respiratory Rate 16 06/07/25 12:22 Blood Pressure 140/74 06/07/25 12:22 Pulse Oximetry 99 06/07/25 12:22 Oxygen Delivery Room Air 06/07/25 12:22 Temperature 98.7 F 06/07/25 12:22 Pulse Rate 92 06/07/25 15:45 Respiratory Rate 16 06/07/25 15:45 Blood Pressure 156/90 H 06/07/25 15:45 Pulse Oximetry 98 06/07/25 15:45 Oxygen Delivery Room Air 06/07/25 12:22 MDM - Extremity Injury (Lower) MDM Narrative Medical decision making narrative: ED COURSE AND MEDICAL DECISION MAKIN-year-old male with acute on chronic back pain. Normal motor and sensory exam. Patient able to ambulate. No evidence of acute cord compression, osteomyelitis/discitis or cauda equina without saddle anesthesia, urinary retention/incontinence, numbness/tingling in lower extremities, fever, history of IV drug use, cancer or immunosuppression. Doubt AAA or aortic dissection without severe pain/discomfort or any neurovascular deficits. [Diazepam 5mg PO] given for symptomatic relief and I will also trial course of steroids. Will obtain CT for further evaluation. On reevaluation, the symptoms are improved. Patient is able to rest more comfortably. Ambulating without difficulty. CT showing degenerative disc disease without any severe or acute abnormality. Patient is given return precautions and instructed to come back at any point in time for worsening pain, fevers, weakness, difficulty walking, urinary or fecal incontinence. Patient expressed understanding of instructions. Follow-up to Neurology/Spine surgery provided as needed. Discharge Plan Discharge Clinical Impression: Lumbar radiculopathy, right Patient Disposition: Home Condition: Stable Instructions: Lumbar Radiculopathy (ED) Additional Instructions: Internal medications as prescribed, try to stay active without doing any heavy lifting or bending over, and if your symptoms get worse especially if you start developing new numbness or weakness or difficulty urinating, please go back to the emergency room. Patient Language: Kiswahili Prescriptions: New prednisone 20 mg tablet 40 mg PO DAILY 4 Days Qty: 8 0RF methocarbamol 750 mg tablet 750 mg PO TID PRN (Reason: muscle spasm) Qty: 30 0RF No Action Centrum Silver Men [id number] mcg tablet 1 tablet PO DAILY mecobalamin (vitamin B12) 500 mcg tablet,chewable 500 mcg PO DAILY lisinopril 10 mg tablet 10 mg PO DAILY Qty: 90 1RF metformin 500 mg tablet extended release 24 hr 500 mg PO DAILY Qty: 90 1RF omeprazole 20 mg capsule,delayed release(DR/EC) 20 mg PO DAILY Qty: 90 1RF atorvastatin [Lipitor] 10 mg tablet 10 mg PO QHS Qty: 90 1RF sildenafil [Viagra] 50 mg tablet 50 mg PO DAILY PRN (Reason: sexual activity) Qty: 30 0RF Rx Instructions: administer 30 minutes to 4 hours before activity Follow-up/Referrals: Jeremy Watters MD [Physician, Neurosurgery] - 2 Days Cirilo Liu MD [Primary Care Provider, Family Practice]
== END 2025-06-07 15:46 | disposition home or self-care (01) ==
PROVIDERS: Emergency Provider Emergency Medicine; PCP Family Medicine
DX: M54.16 Radiculopathy, lumbar region (principal); E78.5 Hyperlipidemia, unspecified; I12.9 Hypertensive chronic kidney disease with stage 1 through stage 4 chronic kidney disease, or unspecified chronic kidney disease; E11.22 Type 2 diabetes mellitus with diabetic chronic kidney disease; N18.31 Chronic kidney disease, stage 3a; N40.0 Benign prostatic hyperplasia without lower urinary tract symptoms
CPT/HCPCS: 72131; 74176; 99284; A9270; J7512